=== PATIENT | female | born 1980 | race Caucasian/White ===

== ENCOUNTER 2024-04-28 05:46 | Day surgery (SDC) | payer OTHER ==
[~2024-04-28] VITALS: Ht 170.2 cm; Wt 102.5 kg
[2024-04-28] MEDS ORDERED: SODIUM CHLORIDE 0.9% 1,000 ML ONE (07:17)
[2024-04-28] MEDS: SODIUM CHLORIDE 0.9% 1,000 ML IV ONE (07:32)
[2024-04-28] MEDS ORDERED: ALBU18HF12 IH (08:16)
[2024-04-28] MEDS ORDERED: FAMO20 PO (08:16)
[2024-04-28] MEDS ORDERED: LOSA-382 PO (08:16)
[2024-04-28] MEDS ORDERED: FERR325T27 PO (08:16)
[2024-04-28] MEDS ORDERED: MONT-35 PO (08:16)
[2024-04-28] MEDS ORDERED: MIDAZOLAM HCL 2 MG/2 ML VIAL ONE (08:17)
[2024-04-28] MEDS ORDERED: FentaNYL CITRATE PF 100 MCG/2 ML VIAL ONE (08:18)
[2024-04-28 09:00] VITALS: PULSE 84; RESP 15; O2SAT 100
[2024-04-28] MEDS ORDERED: MethylPREDNISolone SOD SUCC 125 MG/2 ML VIAL ONE (09:03)
[2024-04-28] MEDS: MethylPREDNISolone SOD SUCC 125 MG/2 ML VIAL IVP ONE (09:39)
[2024-04-28] MEDS ORDERED: BENZOCAINE 20% 50 MCG/SPRAY 57 GM TP ONE (12:00)
[2024-04-28] MEDS ORDERED: LIDOCAINE 2% 11 ML JELLY TP ONE (12:00)
[2024-04-28] MEDS ORDERED: LIDOCAINE 4% 50 ML SOLUTION TP ONE (12:00)
[2024-04-28] MEDS ORDERED: ALBUTEROL SULFATE 2.5 MG/0.5 ML NEB SOLUTION NEB ONE (12:00)
== END 2024-04-28 11:10 | disposition home or self-care (01) ==
LOC: SURGERY 05:46
PROVIDERS: ATTEND Internal Medicine Critical Care Medicine
DX: R05.3 Chronic cough (principal); R06.2 Wheezing; R91.8 Other nonspecific abnormal finding of lung field; I10 Essential (primary) hypertension; J38.4 Edema of larynx; B37.0 Candidal stomatitis; J84.10 Pulmonary fibrosis, unspecified; J98.8 Other specified respiratory disorders; R07.9 Chest pain, unspecified; R04.2 Hemoptysis; D64.9 Anemia, unspecified; J98.09 Other diseases of bronchus, not elsewhere classified; Z85.21 Personal history of malignant neoplasm of larynx; Z79.899 Other long term (current) drug therapy; Z90.49 Acquired absence of other specified parts of digestive tract; Z98.890 Other specified postprocedural states
CPT/HCPCS: 84703; 87206; 87101; 87220; 87070; 31623; 31624; 94640; 71045; 87015; J3010; J2250; J2919; Q9967; J7030; 88108; J7613; Z7610